=== PATIENT | male | born 1970 | race Caucasian/White ===

== ENCOUNTER 2024-06-29 08:06 | Emergency (ER) | payer BC, SELFPAY ==
[2024-06-29 08:14] VITALS: BP 158/87
--- NOTE | 2024-06-29 08:28 | ED.GENMED ---
History of Present Illness
General
Chief Complaint: Chest Pain
Source: patient
Exam Limitations: none
Time Seen by Provider: 06/29/24 08:28
History of Present Illness
History of Present Illness:
54-year-old male sharp anterior localized chest pain this late yesterday afternoon. Has had this intermittently for years but usually only last a couple minutes. Not exertional. Some radiation up towards the clavicle but no radiation to the back.
Is a gradual onset issue. No shearing pain. No nausea or diaphoresis. Symptoms have been continuous since late yesterday afternoon. Patient has a known history of an inflammatory disease and is on a biologic. He also takes indomethacin
regularly. He gets frequent joint issues that rotated at times with elevated CRP.
Past History
Past History
ED Past Medical History: Other (Nonspecific inflammatory disease)
ED Past Surgical History: Appendectomy and Orthopedic
Review of Systems
Review of Systems
All Other Systems: Not applicable
Constitutional: Denies fever or chills
Respiratory: Reports cough; Denies hemoptysis
ABD/GI: Reports no symptoms
Phy Exam
Physical Exam
Physical Exam:
GENERAL: Alert and oriented in no apparent distress
EYE: Orbits normal.
NECK: Supple, no significant adenopathy.
ENT: Pharynx without erythema
CARDIAC: Regular rate and rhythm without any obvious murmurs.
LUNGS: Clear breath sounds,normal
ABDOMEN: Soft, without focal tenderness or distention
NEUROLOGICAL: Alert and oriented , grossly non-focal
SKIN: Warm and dry, no rash or lesion, no discoloration, skin intact.
MUSCULOSKELETAL: No edema,no deformity.Good color
PSYCH: Normal and appropriate interaction.
Scores
Heart Score for Chest Pain Patients
STEMI patient?: No
History: Slightly or Non-Suspicious
ECG: Normal
Age: >45 - <65 years
Risk Factors: 1 or 2 Risk Factors
Troponin: </= Normal Limit
Heart Score for Chest Pain Patients: 2
Heart Score Risk: 2.5% MACE over next 6 weeks
Course
Orders/Labs/Results
Orders:
Orders
06/29/24 08:06
ECG [Electrocardiogram (*1)] Urgent
Reason for Study: Chest Pain
06/29/24 08:07
EKG- Treatment ONCE
06/29/24 08:16
C-Reactive Protein Urgent
Comment: ADD ON
Complete Blood Count/With Diff Urgent
Comprehensive Metabolic Panel Urgent
Troponin I Urgent
06/29/24 08:42
CT Chest Pe Study Urgent
Comment:
Reason For Exam: Pleuritic anterior chest pain
Cardiac Monitoring- Treatment ONCE
IV Insert/Care/Rem.- Treatment PRN
0.9% Sodium Chloride 500 ml [Nss] 500 ml IV BOLUS
Pulse Ox/cont/shift [RESP] Stat
Quantity: 1
06/29/24 09:03
Add On- LAB Urgent
Tests Added?: sr,crp
Abnormal Lab Results
06/29/24
08:16
RDW 15.2 H %
(11.5-14.5)
Absolute Neuts (auto) 7.2 H 10^3/uL
(1.4-6.5)
Absolute Lymphs (auto) 0.8 L 10^3/uL
(1.2-3.4)
Absolute Monos (auto) 0.7 H 10^3/uL
(0.1-0.6)
Neutrophils % 81.0 H %
(42.2-75.2)
Lymphocytes % 9.2 L %
(20.5-51.1)
BUN 23 H mg/dl
(9-20)
Glucose 111 H mg/dl
(70-99)
06/29/24 08:16
06/29/24 08:16
Vital Signs
Initial and Last Documented VS:
Initial Vital Signs
Temp Pulse Resp BP Pulse Ox
97.8 F 83 18 158/87 97
06/29/24 08:14 06/29/24 08:14 06/29/24 08:14 06/29/24 08:14 06/29/24 08:14
Last Documented Vital Signs
Temp Pulse Resp BP Pulse Ox
97.8 F 74 18 135/86 99
06/29/24 08:14 06/29/24 10:00 06/29/24 09:45 06/29/24 10:00 06/29/24 09:45
MDM/Problems Addressed
Differential Diagnosis Includes:
Patient's symptoms very atypical for cardiac. Sharp, localized, worse with breathing. Continuous since late afternoon. Will check EKG and troponin. If troponin is stable do not feel this needs to be repeated given the prolonged symptoms. More
suspicious of either a pleurisy, PE, pericarditis. Some of these might be related to his inflammatory disease. CT scan of the chest will be done.
*Radiology
Radiology exam reviewed: radiology read reviewed (No pulmonary emboli. Small nodules.)
*Pulse Oximetry
Patient hypoxic: no
*EKG
Interpreted by ED Provider?: Yes
Interpretation: normal
Comparison EKG: no comparison EKG present
Heart Rate: 79
Rate: normal
Rhythm: sinus
[place]: normal axis
QRS Pattern: normal QRS
Ischemia: no ischemia
*Critical Care Note
Total Time (30-74mins, 75-104mins- exclusive of procedures): Not Applicable
Update Note
Update Note:
Patient given copy of CT report for follow-up. Very atypical cardiac symptoms prolonged since yesterday afternoon. Given the continuous symptoms for about 16 hours repeat troponin testing is not warranted. However because there is some family
history and patient is an ex-smoker he will follow-up with cardiology.
ED Attending Note
-
Portions of this chart may have been created with voice recognition software.� Occasional wrong word or��sound alike� substitutions may have occurred due to the inherent limitations of voice recognition software.
Discharge Plan
Departure
Patient Disposition: Home (Routine Discharge)
Date of Disposition: 06/29/24
Time of Disposition: 10:27
Patient with high blood pressure during this ER visit?: Yes
Discharge Problem:
Atypical chest pain, 2 mm lung nodules
Instructions: Pulmonary nodule, Chest Pain CBC Follow Up, BLOOD PRESSURE
Referrals:
Mary Harris, DO [Family Provider] - Follow up in 2-3 days
Interventions
Interventions:
*Risk Screen - Suicide Last Done: 06/29/24 08:11
*General Assessment Last Done: 06/29/24 08:11
*Neglect/Abuse Screening Last Done: 06/29/24 08:11
ED- Fall Risk Assessment Last Done: 06/29/24 08:36
*ED COVID-19 Vaccine History Last Done: 06/29/24 08:11
ED- Cardiac Assessment Last Done: 06/29/24 08:36
Discharge Date and Time
Print Language: CITIZ[place]
[2024-06-29 08:36] VITALS: BMI 37.7
[2024-06-29 08:39] LABS: % Basophils 0.4 % (0-2); % Eosinophils 1.5 % (0-6); % Immature Granulocytes 0.4 % (0-0.5); % Lymphocytes 9.2 % (20.5-51.1); % Monocytes 7.5 % (1.7-9.3); Absolute Eosinophils 0.1 10^3/uL (0-0.7); Absolute Lymphocytes 0.8 10^3/uL (1.2-3.4); Absolute Monocytes 0.7 10^3/uL (0.1-0.6); Absolute Neutrophils 7.2 10^3/uL (1.4-6.5); Hematocrit 40.9 % (39.0-52.0); Hemoglobin 14.6 g/dL (13.0-18.0); Mean Corp Hgb Conc. 35.7 g/dL (33.0-37.0); Mean Corpuscular Hgb 30.4 pg (27.0-31.0); Mean Corpuscular Volume 85.2 fL (80.0-94.0); Mean Platelet Volume 9.7 fL (7.4-10.4); Nucleated Red Blood Cells % 0 % (-); Platelet Count 204 10^3/uL (130-400); Red Cell Dist. Width 15.2 % (11.5-14.5); White Blood Cell Count 8.9 10^3/uL (4.8-10.8)
[2024-06-29 08:40] VITALS: BP 121/86
[2024-06-29] MEDS: NSS 500 IV (08:50)
[2024-06-29 08:53] LABS: ALT (SGPT) 49 U/L (0-50); AST (SGOT) 31 U/L (17-59); Albumin 4.4 g/dl (3.5-5.0); Alkaline Phosphatase 117 U/L (38-126); Blood Urea Nitrogen 23 mg/dl (9-20); Calcium 9.4 mg/dl (8.4-10.2); Carbon Dioxide 28 mmol/L (22-30); Chloride 103 mmol/L (98-107); Estimated Creatinine Clearance 114 ml/min; Glucose 111 mg/dl (70-99); Potassium 4.7 mmol/L (3.5-5.1); Sodium 139 mmol/L (135-145); Total Bilirubin 0.7 mg/dl (0.2-1.3); Total Protein 7.4 g/dl (6.3-8.2); eGFR > 60.00
[2024-06-29 09:00] VITALS: BP 135/85
[2024-06-29 09:17] LABS: Troponin I < 0.012 ng/ml
[2024-06-29 10:00] VITALS: BP 135/86
== END 2024-06-29 10:45 | disposition home or self-care (01) ==
LOC: EMR 08:06
PROVIDERS: Emergency Medicine; EMERGENCY PHYSICIAN Emergency Medicine; FAMILY PHYSICIAN Internal Medicine
DX: R07.89 Other chest pain (principal); R91.8 Other nonspecific abnormal finding of lung field; Z90.49 Acquired absence of other specified parts of digestive tract
CPT/HCPCS: 99284; 96360; 96361; 71275; 80053; 84484; 85025; 86140; 93005; Q9967